=== PATIENT | male | born 1955 | race Caucasian/White ===

== ENCOUNTER 2017-04-30 09:59 | Emergency (ER) | payer BC ==
[~2017-04-30] VITALS: Ht 180.3 cm; Wt 78.0 kg
[2017-04-30 10:03] VITALS: BP 124/62; PULSE 64; RESP 14; TEMP 98.4; O2SAT 99
[2017-04-30] MEDS ORDERED: ASPI81CH CHEW (10:09)
--- NOTE | 2017-04-30 10:20 | PD ---
HPI Chief Complaint: Injury Time Seen by Provider: 10:20 Travel History International Travel<30 days: No Contact w/Intl Traveler<30days: No Traveled to known affect area: No History of Present Illness HPI 61-year-old male presents to emergency Department with complaint of right hand pain after tripping and falling while running yesterday. He denies hitting his head or loss of consciousness. Denies anticoagulants. Denies neck pain, back pain. Denies paresthesias, loss of sensation, decreased range of motion, decreased strength to the affected hand. Reports multiple abrasions to the dorsal aspect of the hand and has been applying antibiotic ointment to them. Has not taken any other medications or tried any other treatments to alleviate symptoms. Reports being up-to-date on tetanus vaccination. Denies fever, vomiting. No known allergies. Has no other medical complaints. No other modifying factors or associated signs and symptoms. PFSH Past Medical History Cerebrovascular Accident: Yes (2016) Tetanus Vaccination: < 5 Years Past Surgical History Surgical History: No Previous Surgery Social History Alcohol Use: No Tobacco Use: No Substance Use: No Allergies-Medications (Allergen,Severity, Reaction): Coded Allergies: No Known Allergies (Unverified , 04/30/17) Reported Meds & Prescriptions Reported Meds & Active Scripts Active Bactrim DS (Sulfamethoxazole-Trimethoprim) 800-160 Mg Tab 1 Tab PO BID 10 Days Keflex (Cephalexin) 500 Mg Cap 500 Mg PO Q8H 10 Days Reported Aspirin 81 Mg Chew 81 Mg CHEW DAILY Review of Systems Except as stated in HPI: all other systems reviewed are Neg Physical Exam Narrative GENERAL: Well-nourished, well-developed patient, in no acute distress; afebrile , nontoxic-appearing SKIN: Warm and dry. Multiple abrasions noted to the dorsal aspect of the right hand; without drainage; signs of inflammation and erythema surrounding abrasions consistent with possible infection; with warmth to touch. No lymphangitis noted. HEAD: Atraumatic. Normocephalic. EYES: Pupils equal and round. No scleral icterus. No injection or drainage. ENT: Mucosa pink and moist. Airway patent. NECK: Trachea midline. CARDIOVASCULAR: Regular rate. RESPIRATORY: No accessory muscle use. GASTROINTESTINAL: Flat. 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 Right upper extremity supple and non-tense with 2+ radial pulses sensory intact. No obvious deformities. No clubbing. No cyanosis. NEUROLOGICAL: Awake and alert. Oriented 3. No obvious cranial nerve deficits. Motor grossly within normal limits. Normal speech. PSYCHIATRIC: Appropriate mood and affect; insight and judgment normal. Data Data Last Documented VS Vital Signs Date Time Temp Pulse Resp B/P Pulse Ox O2 Delivery O2 Flow Rate FiO2 04/30/17 10:03 98.4 64 14 124/62 99 Room Air Orders Hand, Complete ([id number]) (04/30/17 10:20) Ice/Cold Pack (04/30/17 10:20) MDM Medical Decision Making Medical Screen Exam Complete: Yes Emergency Medical Condition: Yes Medical Record Reviewed: Yes Differential Diagnosis Hand sprain, hand fracture, abrasions, wound infection, cellulitis Narrative Course 61-year-old male with right hand injury from mechanical trip and fall yesterday. Dorsal aspect right hand with multiple abrasions that do appear within surrounding infection. Patient up-to-date on tetanus vaccination. He is afebrile and not toxic appearing. Denies fever, vomiting. I offered the patient a nonnarcotic for pain and he declined. Ice pack and right hand x-ray ordered. 1108: Right hand x-ray with no acute findings. I'll treat the patient with oral antibiotics for the appearance of infected abrasions. Keflex and Bactrim prescribed for home. Instructed patient to follow up with primary care provider. Patient verbalizes understanding and agreement with treatment plan. Patient is medically cleared and stable for discharge. Discussed reasons to return to the emergency department. Patient agrees with treatment plan. The patients vital signs are stable and the patient is stable for outpatient follow- up and treatment. Patient discharged home, stable and in no acute distress. Diagnosis Primary Impression: Injury of right hand Qualified Code: S69.91XA - Injury of right hand, initial encounter Additional Impression: Infected abrasion of right hand Qualified Code: S60.511A - Infected abrasion of right hand, initial encounter Referrals: Primary Care Physician Patient Instructions: Abrasion (ED), Acute Wound Care (ED), General Instructions, Hand Sprain (ED), Wound Infection (ED) Additional Instructions: Antibiotics as prescribed Topical antibiotic ointment as directed and as needed for wound care Ibuprofen or Tylenol instructed for pain and inflammation Ice to affected area to reduce pain and inflammation Qasim bandage as needed for compression and support Follow-up with primary care provider Return to the emergency department immediately with worsening of symptoms Med/Other Pt SpecificInfo: Prescription(s) given Scripts Sulfamethoxazole-Trimethoprim (Bactrim DS)800-160 Mg Tab1 Tab PO BID 10 Days Ref 0 Prov:Callie White 04/30/17 Cephalexin (Keflex)500 Mg [id number] Mg PO Q8H 10 Days Ref 0 Prov:Callie White 04/30/17 Disposition: 01 DISCHARGE HOME Condition: Stable Callie White Apr 30, 2017 10:20
[2017-04-30] MEDS ORDERED: BACT800T5 PO (10:28)
[2017-04-30] MEDS ORDERED: CEPH-460 PO (10:28)
--- NOTE | 2017-04-30 11:07 | RADRPT ---
EXAM DATE/TIME: 04/30/2017 10:41 [facility] COMPARISON: No previous studies available for comparison. INDICATIONS : Pain from fall. MEDICAL HISTORY : None. SURGICAL HISTORY : None. ENCOUNTER: Initial ACUITY: 1 day PAIN SCORE: 3/10 LOCATION: Right third digit. FINDINGS: Three view examination of the right hand demonstrates no soft tissue swelling, dislocation, or fractu re. The carpal bones appear intact. The interphalangeal and metacarpophalangeal joints are intact. Bony mineralization is normal. CONCLUSION: Negative for fracture. Osmin York MD FACR on April 30, 2017 at 11:04 Board Certified Radiologist. This report was verified electronically.
== END 2017-04-30 11:30 | disposition home or self-care (01) ==
LOC: NEPK 09:59
DX: S60.511A Abrasion of right hand, initial encounter (principal); W01.0XXA Fall on same level from slipping, tripping and stumbling without subsequent striking against object, initial encounter; Y93.02 Activity, running
CPT/HCPCS: 73130; 99284